=== PATIENT | male | born 2000 | race Two or more races ===

== ENCOUNTER 2022-04-11 22:56 | Emergency (ER) | payer MEDICAID ==
[~2022-04-11] VITALS: Ht 182.9 cm; Wt 59.0 kg
[2022-04-11 22:56] VITALS: BP_SYST 125
--- NOTE | 2022-04-11 22:56 | NUR ---
Patient placed on suicide precautions. Patient placed in room within close proximity to nurses' station for closer observation and monitoring. All clothing removed, placed in hospital gown. Metal detector wand used to further screen patient of any potential hazardous belongings. All belongings inventoried, placed in bags and removed from room. Cabinets locked. BP and pulse oximeter cords, and fish and wildlife biologist leads currently still in use for monitoring
--- NOTE | 2022-04-11 22:56 | NUR ---
Note indu in ED - 04/11/22 at 2323 by [email or web address] Placed in room 01 . Placed on painter and body mechanic apprentice, blood pressure machine and pulse oximeter. To gown for exam. Side rails up. Report given to JEROMY Mead
--- NOTE | 2022-04-11 23:00 | NUR ---
PT CAME IN W/ 18G IV ON THE LAC FROM AMB RUN.
[2022-04-11] MEDS ORDERED: NACL 0.9% 1,000 ML IV ONE (23:15)
--- NOTE | 2022-04-11 23:29 | NUR ---
PT IS AA&OX4. AFEBRILE. NAD, DENIES PAIN. PT VERBALIZED HE'S SUICIDAL, DTS W/ PLAN OF SHOOTING HIMSELF. PT PLACED CLOSEST TO THE NURSE'S STATION W/ VISUAL CHECKS AT ALL TIMES. ALL CONTRABANDS REMOVED. PLACED IN A GOWN. BELONGINGS INVERTORIED ALONG W/ SECURITY. SAFE & HAZARD FREE ENVIRONMENT PROVIDED.
[2022-04-11 23:42] LABS: BASOPHILS # (AUTO) 0.1 K/uL (0.0-0.2); HEMOGLOBIN 14.7 g/dL (14.0-18.0)
[2022-04-11 23:52] LABS: BILIRUBIN,URINE NEGATIVE (NEGATIVE); BLOOD, URINE NEGATIVE (NEGATIVE); CLARITY/URINE CLEAR (CLEAR); COLOR,URINE YELLOW (YELLOW); GLUCOSE,URINE 3+ (NEGATIVE); KETONES,URINE 1+ (NEGATIVE); LEUKOCYTE ESTERASE ,URINE NEGATIVE (NEGATIVE); NITRITE, URINE NEGATIVE (NEGATIVE); PROTEIN URINE NEGATIVE (NEGATIVE); UROBILINOGEN,URINE 0.2 (0.2-1.0)
--- NOTE | 2022-04-11 23:52 | NUR ---
Specimens for COVID and MRSA collected and sent to lab.
[2022-04-11 23:57] LABS: EOSINOPHILS % (AUTO) 0.7 % (0.0-4.0); HEMATOCRIT 43.2 % (36-54); LYMPHOCYTES # (AUTO) 2.2 K/uL (1.0-5.5); LYMPHOCYTES % (AUTO) 35.1 % (20.5-51.5); MEAN CORPUSCULAR HEMOGLOBIN 30 pg (27-31); MEAN CORPUSCULAR HGB CONC 34 % (32-36); MEAN CORPUSCULAR VOLUME 88 fL (79.0-98.0); MONOCYTES # (AUTO) 0.3 K/uL (0.0-1.0); NEUTROPHILS # (AUTO) 3.6 K/uL (1.8-7.7); NEUTROPHILS % (AUTO) 58.2 % (40.0-70.0); PLATELET COUNT (AUTO) 276 K/uL (130-430); RED BLOOD CELL COUNT(AUTO) 4.91 MIL/uL (4.2-6.2); RED CELL DISTRIBUTION WIDTH 13.6 % (9.0-15.0); WHITE BLOOD COUNT (AUTO) 6.1 K/uL (4.5-11.0)
[2022-04-11 23:58] LABS: ANION GAP 7 (5-15); CALCIUM 8.6 mg/dL (8.4-11.0); CHLORIDE 91 mmol/L (98-107); CREATININE 1.25 mg/dL (0.55-1.30); POTASSIUM 5.2 mmol/L (3.5-5.1); UREA NITROGEN, BLOOD 22 mg/dL (8-21)
[2022-04-12 00:06] LABS: ALANINE AMINOTRANSFERASE 24 U/L (12-78); ALBUMIN 3.7 g/dL (3.4-4.8); ASPARTATE AMINOTRANSFERASE 10 U/L (10-37)
[2022-04-12 00:26] LABS: ALCOHOL, BLOOD < 3 mg/dL (<10); GFR AFRICAN AMERICAN 95 mL/min (>90)
[2022-04-12 00:32] LABS: GLUCOSE 800 mg/dL (70-99)
[2022-04-12 00:34] LABS: ACETONE, SERUM SMALL (NEGATIVE)
--- NOTE | 2022-04-12 00:43 | NUR ---
CRITICAL LAB VALUE CALLED BY LAB: [id number]. APAP & SALICYLATES WILL BE SENT TO [place] AND RESULTS WILL TAKE A WHILE. DR. HORTA MADE AWARE.
[2022-04-12 00:58] LABS: BARBITURATE, URINE NEGATIVE (NEG <=200); BENZODIAZEPINE, URINE NEGATIVE (NEG <=150); COCAINE, URINE NEGATIVE (NEG <=150); METHAMPHETAMINES SCREEN,URINE NEGATIVE (NEG <=500); OPIATE, URINE NEGATIVE (NEG <=100); PHENCYCLIDINE SCREEN,URINE NEGATIVE (NEG <=25); UR TRICYCLIC ANTIDEPRESSANTS NEGATIVE (NEG <=300); URINE AMPHETAMINE NEGATIVE (NEG <=500); URINE METHADONE NEGATIVE (NEG <=200); URINE OXYCODONE SCREEN NEGATIVE (NEG <=100); URINE PROPOXYPHENE SCREEN NEGATIVE (NEG <=300)
[2022-04-12 00:59] LABS: CANNABINOID, URINE POSITIVE (NEG <=50)
[2022-04-12] MEDS ORDERED: NACL 0.9% 1,000 ML IV ONE ×2 (01:00→07:00)
[2022-04-12] MEDS ORDERED: INSULIN REGULAR, HUMAN 10 UNITS/0.1 ML, 3 ML VIAL IVP ONE (01:00)
--- NOTE | 2022-04-12 01:00 | NUR ---
Contacted the following medical tranport companies in an attempt to secure tranportation back to [place]: [facility] All the following providers were unable to accomodate the request for transportation.
[2022-04-12 05:46] LABS: ACETAMINOPHEN < 1 ug/mL (1-30)
--- NOTE | 2022-04-12 06:24 | NUR ---
CALLED & SPOKE TO JEROMY VALENCIA ( [phone] [facility]. REPORT GIVEN. PER ANNIE, SHE SENT A SITTER NAMED KENDAL TO SIT THE PT AND THAT DR. FONTANA WILL BE COMING IN TO EVALUATE THE PT. PT'S CHART FAXED OVER TO [facility] [phone] PER ANNIE'S REQUEST. THEY WILL ACCEPT THE PT. WILL GIVE THEM A COURTESY CALL OF ETA WHEN TRANSPO IS ARRANGED.
--- NOTE | 2022-04-12 06:32 | NUR ---
FAXED FACESHEET AND CLINICALS TO [facility] PER JEROMY TOUSSAINT WHO SPOKE TO ANNIE AT [facility]. FAX: [phone]
--- NOTE | 2022-04-12 06:34 | NUR ---
at bedside evaluating patient.
--- NOTE | 2022-04-12 06:50 | NUR ---
PT WAS PLACED ON [address] FONTANA OF 04/12/22 @ 0650. NO CONTRABANDS. SITTER AT ALL TIMES.
[2022-04-12] MEDS ORDERED: HALOPERIDOL LACTATE 5 MG/ML VIAL IM ONE (07:00)
[2022-04-12] MEDS ORDERED: HALOPERIDOL LACTATE 5 MG/ML VIAL IVP ONE (07:00)
[2022-04-12] MEDS ORDERED: LORazepam 2 MG/ML VIAL IVP ONE (07:00)
[2022-04-12] MEDS ORDERED: LORazepam 2 MG/ML VIAL IM ONE (07:00)
--- NOTE | 2022-04-12 07:07 | NUR ---
JESÚS HOOKER SUP MADE AWARE OF 5150 HOLD.
--- NOTE | 2022-04-12 07:18 | NUR ---
REPORT GIVEN TO JEROMY CANDELARIO
--- NOTE | 2022-04-12 07:25 | NUR ---
RECEIVED PT FROM JEROMY TOUSSAINT. PT ASKED IF HE HAS SUCIDAL IDEATION. PT STATES, "WHY AM I ON A 5150? IT'S ONLY DELAYING MY LIFE BY 7 DAYS. PT ENCOURAGE TO FIND NEW WAYS TO COPE WITH LIFE. PT STATED, "NO I AM DONE." RESP E/U. NO R/A. DENIES N/V/D/C. DENIES PAIN. SKIN WARM, INTACT, NO EDEMA. PT PLACED ON MONITOR.
--- NOTE | 2022-04-12 07:26 | NUR ---
PT MOVED TO ER BED 5, SAFETY MEASURES IN PLACE, GUILHERME WHITE WITH PT UNTIL SITTER FROM [facility] ARRIVES
--- NOTE | 2022-04-12 07:28 | NUR ---
SPOKE TO MOLD MAKER PLASTIC MOLDS AT [facility] WHO STATED KENDAL IS ROUTE TO [place] TO BE SITTER FOR PT. JEROMY NOYOLA. MADE AWARE.
--- NOTE | 2022-04-12 07:31 | NUR ---
SPOKE TO ANNIE AT [facility] AND INFORMED HER PT WILL BE PICKED UP BY AMBULANCE AT 1200 TODAY. SHE STATED THAT YANI EDMONDS SHOULD BE AT THE UNIT IN ABOUT 10 MINUTES.
--- NOTE | 2022-04-12 07:50 | NUR ---
MEAL TRAY WAS PROVIDED TO THE PT. PT ATE ALL ITEMS PROVIDED.
--- NOTE | 2022-04-12 08:15 | NUR ---
ATIVAN IM 2MG GIVEN AND TOLERATED WELL. PT REFUSED HALDOL IM, DR. COSBY MADE AWARE. DR. COSBY SPOKE TO PT AND REINFORCED THAT LONG HE CAN STAY CALM AND NOT AGGRESSIVE THEN PT IS OKAY TO REFUSE HALDOL. PT AGREED TO STAY CALM. PT MADE AWARE THAT ETA FOR AMBULANCE TRANSPORT IS AT 1200. PT VERBALIZED UNDERSTANDING.
--- NOTE | 2022-04-12 08:45 | NUR ---
MEJIA FROM [facility] HAS ARRIVED AT FACILITY AND HAS TAKEN OVER CARE OF ONE ON ONE SUPERVISION.
--- NOTE | 2022-04-12 10:30 | NUR ---
[facility] CALLED AND STATED ETA NOW IN 35 MINUTES. PT MADE AWARE.
[2022-04-12 11:40] VITALS: BP_SYST 124
--- NOTE | 2022-04-12 11:43 | NUR ---
PT VALUABLES AND BELONGINGS WERE DIRECTLY GIVEN TO [facility] FINANCE CONTROLLER UPON TRANSFER.
--- NOTE | 2022-04-12 11:46 | NUR ---
Patient to be transferred to [facility]. Is being transferred due to higher level of care. Receiving facility has accepting physician and available space. ER physician has signed transfer form. Patient or responsible democrat has agreed to transfer and signed form. Patient belongings inventoried and will be sent with patient. Copy of nursing notes, lab reports, EKG, Physicians Orders and X-rays to be sent with patient. Report called to ANNIE at receiving facility. Receiving physician is UNKNOWN. [facility] has been called for transfer.
--- NOTE | 2022-04-12 13:38 | NUR ---
CALLING [facility] AND CLARIFIED THAT PT VALUABLES AND BELONGINGS WAS GIVEN TO [facility] NURSE. [facility] HAS PT BELONGINGS. SPOKE TO ASHTYN
== END 2022-04-12 11:46 ==
LOC: SED 22:56
DX: R45.851 Suicidal ideations (principal); R73.9 Hyperglycemia, unspecified; F32.9 Major depressive disorder, single episode, unspecified; Z79.899 Other long term (current) drug therapy; Z20.822 Contact with and (suspected) exposure to COVID-19
CPT/HCPCS: 99285; 96361 ×2; 87426; 80307; 80053; 82009; 82962; 85025; 87081; 36415; 36600; 82803; 81003; 96374; 96372; G0482; J7030 ×2; J1630; J1815; J2060; G0480; G0481

== ENCOUNTER 2022-11-01 01:45 | Emergency (ER) | payer MEDICAID ==
[~2022-11-01] VITALS: Ht 185.4 cm; Wt 60.8 kg
--- NOTE | 2022-11-01 01:55 | NUR ---
Patient to ER bed 04 to gown for evaluation. Side rails up. Report given to JEROMY LEE.
[2022-11-01 01:57] VITALS: BP_SYST 112
[2022-11-01] MEDS ORDERED: NACL 0.9% 1,000 ML IV ONE ×2 (02:00→03:45)
--- NOTE | 2022-11-01 02:10 | NUR ---
DR COSBY BEDSIDE TO EVAL PT
[2022-11-01 02:33] LABS: ACETONE, SERUM NEGATIVE (NEGATIVE)
[2022-11-01 02:38] LABS: ALANINE AMINOTRANSFERASE 15 U/L (12-78); ALBUMIN 3.9 g/dL (3.4-4.8); ANION GAP 11 (5-15); ASPARTATE AMINOTRANSFERASE 13 U/L (10-37); CALCIUM 8.7 mg/dL (8.4-11.0); CHLORIDE 95 mmol/L (98-107); CREATININE 0.81 mg/dL (0.55-1.30); GFR AFRICAN AMERICAN 155 mL/min (>90); LIPASE 36 U/L (73-393); TOTAL BILIRUBIN 1.7 mg/dL (0.0-1.0); UREA NITROGEN, BLOOD 15 mg/dL (8-21)
[2022-11-01 02:41] LABS: GLUCOSE 499 mg/dL (70-99)
[2022-11-01 02:44] LABS: BASOPHILS # (AUTO) 0.1 K/uL (0.0-0.2); BASOPHILS % (AUTO) 0.8 % (0.0-2.0); EOSINOPHILS % (AUTO) 0.3 % (0.0-4.0); HEMATOCRIT 45.2 % (36-54); HEMOGLOBIN 15.1 g/dL (14.0-18.0); LYMPHOCYTES # (AUTO) 1.6 K/uL (1.0-5.5); LYMPHOCYTES % (AUTO) 25.9 % (20.5-51.5); MEAN CORPUSCULAR HEMOGLOBIN 30 pg (27-31); MEAN CORPUSCULAR HGB CONC 34 % (32-36); MEAN CORPUSCULAR VOLUME 89 fL (79.0-98.0); MONOCYTES # (AUTO) 0.4 K/uL (0.0-1.0); MONOCYTES % (AUTO) 6.3 % (1.7-9.3); NEUTROPHILS # (AUTO) 4.2 K/uL (1.8-7.7); NEUTROPHILS % (AUTO) 66.7 % (40.0-70.0); PLATELET COUNT (AUTO) 290 K/uL (130-430); RED BLOOD CELL COUNT(AUTO) 5.09 MIL/uL (4.2-6.2); RED CELL DISTRIBUTION WIDTH 13.8 % (9.0-15.0); WHITE BLOOD COUNT (AUTO) 6.3 K/uL (4.8-10.8)
[2022-11-01] MEDS ORDERED: INSULIN REGULAR, HUMAN 100 UNITS/ML, 3 ML VIAL SQ ONE (03:30)
[2022-11-01] MEDS ORDERED: INSU200I4 SQ (04:01)
[2022-11-01] MEDS ORDERED: INSU200I SQ (04:01)
[2022-11-01 04:02] LABS: BILIRUBIN,URINE NEGATIVE (NEGATIVE); BLOOD, URINE NEGATIVE (NEGATIVE); CLARITY/URINE CLEAR (CLEAR); COLOR,URINE YELLOW (YELLOW); GLUCOSE,URINE 3+ (NEGATIVE); KETONES,URINE 1+ (NEGATIVE); LEUKOCYTE ESTERASE ,URINE NEGATIVE (NEGATIVE); NITRITE, URINE NEGATIVE (NEGATIVE); PH,URINE 6.5 (5.0-8.0); PROTEIN URINE NEGATIVE (NEGATIVE)
--- NOTE | 2022-11-01 04:02 | NUR ---
REPEAT BGL POC [id number]
[2022-11-01] MEDS ORDERED: INSULIN REGULAR, HUMAN 100 UNITS/ML, 3 ML VIAL SUBCUT ONE (04:15)
[2022-11-01 04:19] LABS: RBC,URINE 0-3 /HPF (0-3); WBC,URINE 0-3 /HPF (0-3)
[2022-11-01 04:20] LABS: BACTERIA,URINE None Seen /HPF (None Seen)
--- NOTE | 2022-11-01 04:30 | NUR ---
Patient given written and verbal discharge instructions and verbalizes understanding. ER MD discussed with patient the results and treatment provided. Patient in stable condition. ID arm band removed. IV catheter removed intact and dressing applied, no active bleeding. Rx of INSULIN given. Patient educated on pain management and to follow up with PMD. Pain Scale 0. Opportunity for questions provided and answered. Medication side effect fact sheet provided.
[2022-11-01 04:59] VITALS: BP_SYST 108
--- NOTE | 2022-11-01 10:59 | NUR ---
Safety Admin Assistant re: homelessness Telephone call made to the patient regarding his housing situation. The patient was offered resources related to housing needs that include shelters, local food [place], [facility], and information on community resources. Per patient, he is not in any need of additional resources, as he was on his way to his co-workers home and will begin to make phone calls. He was grateful for the resources provided and thanked me. At this time, there are no other needed needing to be addressed by healthcare social worker.
== END 2022-11-01 04:30 | disposition home or self-care (01) ==
LOC: SED 01:45
DX: E10.65 Type 1 diabetes mellitus with hyperglycemia (principal); Z59.00 Homelessness unspecified; Z79.4 Long term (current) use of insulin; F12.90 Cannabis use, unspecified, uncomplicated; Z79.899 Other long term (current) drug therapy
CPT/HCPCS: 99285; 96374; 71045; 96361; 80053; 81000; 82009; 82962; 83690; 85025; 87040; 87086; 84484; 36415; 93005; 36600; 82803; 83605; J7030